=== PATIENT | male | born 1955 | race Caucasian/White ===

== ENCOUNTER → 2017-05-20 | Outpatient (CLI) | payer OTHER ==
--- NOTE | 2017-05-20 09:32 | KCIC ---
EXAM: Lumbar spine MRI without contrast. HISTORY: Chronic back pain. Left leg weakness. TECHNIQUE: Multiplanar, multisequence magnetic resonance imaging of the lumbar spine was performed without contrast. COMPARISON: 04/15/2016 FINDINGS: There is a transitional lumbosacral segment. For the purposes of this dictation and correspond with the numbering system utilized on the prior MRI report, the transitional segment will be considered a partially lumbarized S1 segment with rudimentary S1-S2 disc. Based on this numbering system, there is grade 1 anterolisthesis of L4 on L5, measuring 3 mm. There is minimal retrolisthesis of L5 on S1. There is lumbar levoscoliosis. There is degenerative endplate remodeling with disc space narrowing and osteophytosis primarily at and L5-S1. There are multiple endplate Schmorl's nodes. There are multiple hemangiomas. There is epidural lipomatosis. There are left renal parapelvic cysts. The conus terminates at L2. At T11-T12, there is a posterior central disc protrusion superimposed on a disc bulge and endplate remodeling. There is moderate facet arthropathy. The neural foramina are excluded from the [id number]. There is mild central canal stenosis. At T12-L1, there is a posterior central superior disc extrusion extending 17 mm superior to the disc space. There is also a left foraminal to extra foraminal disc protrusion with 3 mm superior extrusion superimposed on a disc bulge and endplate remodeling. There is mild bilateral facet arthropathy. There is moderate to severe right and severe left foraminal stenosis. There is mild central canal stenosis. At L1-L2, there are bilateral extraforaminal annular tears superimposed on a disc bulge and endplate remodeling. There is moderate facet arthropathy. There is hypertrophy of the ligamentum flavum. There is mild right and moderate left foraminal stenosis with abutment of the exiting L1 nerve roots. There is mild central canal stenosis. At L2-L3, there is a right paracentral disc protrusion with 5 and inferior extrusion superimposed on a disc bulge and endplate osteophytosis. There is mild right and moderate left facet arthropathy. There is hypertrophy of the ligamentum flavum. There is mild right and qsza-yw-[id number] left foraminal stenosis with abutment of the exiting left greater than right L2 nerve root. There is moderate to severe central canal stenosis. At L3-L4, there is a posterior central to right paracentral disc protrusion with 7 mm superior extrusion superimposed on a right lateral predominant disc bulge and endplate osteophytosis. There is moderate bilateral facet arthropathy. There is epidural lipomatosis. There is pvhc-hj-jmzyebkq bilateral foraminal stenosis with abutment of the exiting L3 nerve roots. There is severe central canal stenosis. At L4-L5, there is a right lateral predominant disc bulge and endplate osteophytosis. There is severe facet arthropathy. There is hypertrophy of the ligamentum flavum. There is moderate right foraminal stenosis with abutment of the exiting right L4 nerve root. There is moderate to severe central canal stenosis. At L5-S1, there is a diffuse disc bulge with endplate osteophytosis. There is severe facet arthropathy. There is severe bilateral foraminal stenosis with effacement of the exiting L5 nerve roots. There is severe central canal stenosis. IMPRESSION: 1. Multilevel degenerative changes of the lumbar spine, described in detail above. This results in significant foraminal and central canal stenosis at multiple levels. These findings are stable to slightly progressed at all levels compared to the prior study. 2. Lumbar scoliosis and grade 1 anterolisthesis of L4 and L5. 3. Transitional lumbosacral segment, considered S1 for this dictation. Electronically signed by: Stacy Cuevas MD (05/20/2017 9:28 AM) [facility]-KCIC1
== END | disposition home or self-care (01) ==
LOC: KCIC MRI 08:25
PROVIDERS: ATTEND Family Medicine
DX: M48.061 Spinal stenosis, lumbar region without neurogenic claudication (principal); M51.46 Schmorl's nodes, lumbar region; M51.26 Other intervertebral disc displacement, lumbar region; M47.896 Other spondylosis, lumbar region; R53.1 Weakness
CPT/HCPCS: 72148

== ENCOUNTER → 2017-07-22 | Outpatient (CLI) | payer OTHER ==
[2017-07-22 12:59] LABS: ADD MAN DIFF? NO
[2017-07-22 13:06] LABS: BASO % 1 % (0-3); EOS % 6 % (0-3); HEMOGLOBIN 13.7 g/dL (13.0-17.5); LYMPH # 0.5 x10^3/uL (1.0-4.8); LYMPH % 10 % (24-48); MEAN CORPUSCULAR HEMOGLOBIN 30 pg (25-35); MEAN CORPUSCULAR HGB CONC 33 g/dL (31-37); MEAN CORPUSCULAR VOLUME 91 fL (79-100); MONO % 10 % (0-9); NEUT % 75 % (31-73); PLATELET COUNT 266 x10^3/uL (140-400); RED BLOOD COUNT 4.63 x10^6/uL (4.30-5.70); RED CELL DISTRIBUTION WIDTH 13.2 % (11.5-14.5); WHITE BLOOD COUNT 5.4 x10^3/uL (4.0-11.0)
[2017-07-22 13:21] LABS: ALBUMIN 3.4 g/dL (3.4-5.0); ALBUMIN/GLOBULIN RATIO 0.9 (1.0-1.7); ALK PHOS 73 U/L (46-116); ALT (SGPT) 21 U/L (16-63); ANION GAP 9 (6-14); AST (SGOT) 13 U/L (15-37); BLOOD UREA NITROGEN 19 mg/dL (8-26); BUN/CREATININE RATIO 17 (6-20); CALCIUM 8.5 mg/dL (8.5-10.1); CARBON DIOXIDE 28 mmol/L (21-32); CHLORIDE 107 mmol/L (98-107); CREATININE 1.1 mg/dL (0.7-1.3); GFR 68.1; GLUCOSE 131 mg/dL (70-99); POTASSIUM 4.2 mmol/L (3.5-5.1); SODIUM 144 mmol/L (136-145); TOTAL BILIRUBIN 0.3 mg/dL (0.2-1.0)
[2017-07-22 21:17] LABS: MRSA BY PCR Negative (Negative)
== END | disposition home or self-care (01) ==
LOC: SURGPAT 09:54
DX: Z01.818 Encounter for other preprocedural examination (principal); M47.896 Other spondylosis, lumbar region
CPT/HCPCS: 36415; 80053; 85025; 87641

== ENCOUNTER 2017-07-23 08:08 | Day surgery (SDC) | payer OTHER ==
[~2017-07-23 08:08] MED LIST: BACITRACIN 50,000 UNIT in IV NORMAL SALINE 1000ML BAG 1,000 ML IRR ONE; BUPIVACAINE MPF 0.5% 30 ML VIAL. ONE; CELE100C PO; GELATIN SPONGE SIZE 100. ONE; IV RINGERS,LACTATED 1000ML 1,000 ML IV SCH; LIDOCAINE 1% PF 2 ML VIAL. ID PRN; LIDOCAINE 2%/EPI 1:100,000 20 ML VIAL. ONE; METF850T2 PO; ONDANSETRON PF 4 MG/2 ML VIAL. IV PRN; OXYC-328 PO; PHEN37.53 PO; PROCHLORPERAZINE 10 MG/2 ML VIAL. IV PRN; RANI300C PO; THROMBIN TOPICAL 20,000 UNIT SPRAY.SYRN KIT TP ONE; TIZA4TAB PO; fentaNYL PF VIAL 100 MCG/2 ML VIAL IV PRN
[2017-07-23] MEDS ORDERED: ONDANSETRON PF 4 MG/2 ML VIAL. ONE (08:36)
[2017-07-23] MEDS ORDERED: PROPOFOL 20 ML IV ONE (08:36)
[2017-07-23] MEDS ORDERED: LIDOCAINE 2% PF Vial for OR 5 ML VIAL. ONE (08:36)
[2017-07-23] MEDS ORDERED: ROCURONIUM 50 MG/5 ML VIAL. ONE (08:36)
[2017-07-23] MEDS ORDERED: DEXAMETHASONE SOD PHOS 20 MG/5 ML VIAL. ONE (08:36)
[2017-07-23] MEDS ORDERED: REMIFENTANIL 2 MG VIAL. IV ONE (08:36)
[2017-07-23] MEDS ORDERED: PROPOFOL 50 ML IV ONE ×2 (08:36→11:45)
[2017-07-23] MEDS ORDERED: PHENYLEPHRINE 10 MG/ML VIAL. ONE ×2 (08:36→11:45)
[2017-07-23] MEDS ORDERED: MINERAL OIL/PETROLATUM,WHITE OPHTH OINT 3.5GM TUBE. ONE (08:37)
[2017-07-23] MEDS ORDERED: DESFLURANE > 120 MINUTES IH ONE (11:45)
[2017-07-23] MEDS ORDERED: fentaNYL PF VIAL 100 MCG/2 ML VIAL ONE (12:03)
--- NOTE | 2017-07-23 12:12 | PDOC ---
BRIEF OPERATIVE NOTE Date: Jul 23, 2017 Pre-Op Diagnosis lumbar radiculopathy, lumbar spondylosis Post-Op Diagnosis same Procedure Performed left L5-S1 hemilaminotomy with foraminotomy and removal of disk fragment Surgeon Chang Prepper none Anesthesia Type: General Blood Loss 50mL Specimens Obtained disk/decompression Findings prominent stenosis left L5-S1 due to degenerative changes and disk, neuromonitoring remained at least baseline throughout the procedure Complications none apparent ZEHRA SHARPE MD Jul 23, 2017 12:12
--- NOTE | 2017-07-23 12:16 | DISCH ---
DISCHARGE INSTRUCTIONS Condition on Discharge Condition on Discharge: Stable Activity After Discharge Activity Instructions for Disc: Avoid exertion, Progressive ambulation, Other, see below (no strenuous activity, no lifting over 10lbs, no excess bending or twisting) Lifting Instructions after Dis: Do not lift >10 pounds Wound Incision Care Wound/Incision Care: Other, see below (may remove dressing day 3 after surgery ; keep incision clean and dry; do not soak, scrub, or submerge incision) Contacting the after DC Call your doctor for: Concerns you may have Follow-Up Follow up with: Dr. Sharpe/neurosurgery in two weeks [phone] ZEHRA SHARPE MD Jul 23, 2017 12:16
[2017-07-23] MEDS: HYDROmorphone 2 MG/ML VIAL IV PRN ×2 (12:33→12:48)
[2017-07-23] MEDS: fentaNYL PF VIAL 100 MCG/2 ML VIAL IV PRN ×2 (12:41→12:48)
[2017-07-23] MEDS ORDERED: OXYC-323 PO (12:54)
[2017-07-23] MEDS ORDERED: SENN-37 PO (12:54)
[2017-07-23] MEDS ORDERED: METH-38 PO (12:54)
[2017-07-23] MEDS: MORPHINE SULFATE 2 MG/ML DISP.SYRIN. IV PRN ×2 (12:59→13:10)
--- NOTE | 2017-07-23 13:13 | OP ---
DATE OF SURGERY: 07/23/2017 SURGEON: Rei Sharpe MD. FILTER PULP WASHER: None. PREOPERATIVE DIAGNOSES: Lumbar radiculopathy and lumbar spondylosis. POSTOPERATIVE DIAGNOSES: Lumbar radiculopathy and lumbar spondylosis. PROCEDURE: Left L5-S1 hemilaminotomy with foraminotomy and removal of disk fragment with intraoperative use of neuromonitoring. ANESTHESIA: General. COMPLICATIONS: None intraprocedurally. INDICATIONS FOR THE PROCEDURE: The patient is a 61-year-old gentleman with low back and left posterior leg pain with prominent stenosis on the left at L5-S1 secondary to disk as well as degenerative changes. He has been refractory to multiple nonsurgical treatments. Please refer to the patient's chart for additional detail. DESCRIPTION OF PROCEDURE: After informed consent was obtained, the patient was brought into the operating room. He was placed under general anesthesia. He was placed in prone position on the Alfred table. All pressure points were checked and padded appropriately. Neuromonitoring was instituted and baseline potentials were obtained. Lumbar region was prepped and draped in usual sterile fashion. Fluoroscopy was utilized to localize an appropriate incision location and a vertical incision centered over the region of lumbar 5 and sacral 1 with 10 blade scalpel. Monopolar electrocautery was utilized to dissect the avascular midline to the spinous processes of lumbar 5 and sacral 1 and leftward across the lamina at this location. Level was verified with fluoroscopy prior to the initiation of decompression. A hemilaminotomy was performed on the left at this region with a pneumatic drill as well as Kerrison rongeur. The underlying ligament was gently dissected free and a disk fragment was encountered. This was removed in a piecemeal fashion. The adjacent nerve root was identified and this was decompressed utilizing a Kerrison rongeur to perform a foraminotomy. Upon completion of these things, the region was noted to be very well decompressed and verified with direct visualization as well as gentle palpation with a nerve hook and a Desire. Neuromonitoring potentials remained at least baseline throughout the entire procedure. Pristine hemostasis was achieved with FloSeal, cottonoids and some use of bipolar electrocautery. The wound was generously irrigated with antibiotic irrigation prior to the final closure. The muscles and fascia were reapproximated with 0 Vicryl in simple interrupted fashion. Subcutaneous tissues were reapproximated with 2-0 Vicryl in interrupted inverted fashion. Skin was reapproximated with 4-0 Vicryl in a running subcuticular fashion. Mastisol and Steri-Strips were applied. The wound was dressed with Telfa and Tegaderm. At the end of procedure, all needle and sponge counts correct x 2. The patient was extubated in the operating room and taken to recovery in stable condition. There were no intraprocedural complications apparent. Neuromonitoring potentials remained at least baseline throughout the entire procedure. REI SHARPE MD DR: DAX/sandra JOB#: [id number] / [id number] ASYA
[2017-07-23] MEDS ORDERED: ZOLPIDEM 5 MG TABLET. PO PRN (13:45)
[2017-07-23] MEDS ORDERED: diphenhydrAMINE HCL 25 MG CAPSULE PO PRN (13:45)
[2017-07-23] MEDS ORDERED: MAG HYDROX/ALUMINUM HYD/SIMETH 30 ML ORAL.SUSP PO PRN (13:45)
[2017-07-23] MEDS ORDERED: CALCIUM CARBONATE 500 MG TAB.CHEW PO PRN (13:45)
[2017-07-23] MEDS ORDERED: oxyCODONE/APAP 5/325 1 TAB TABLET PO PRN ×2 (13:45)
[2017-07-23] MEDS ORDERED: 0.9 % SODIUM CHLORIDE 10 ML DISP.SYRIN. IV PRN (13:45)
[2017-07-23] MEDS ORDERED: diphenhydrAMINE 50 MG/ML VIAL IV PRN (13:45)
[2017-07-23] MEDS ORDERED: ONDANSETRON PF 4 MG/2 ML VIAL. IV PRN (13:45)
[2017-07-23] MEDS ORDERED: NON FORMULARY ITEM (Ranitidine Hcl 1 CAP) PO PRN (13:45)
[2017-07-23] MEDS ORDERED: NALOXONE 0.4 MG/ML VIAL. IV PRN (13:45)
[2017-07-23] MEDS ORDERED: ACETAMINOPHEN 325 MG TABLET. PO PRN (13:45)
[2017-07-23] MEDS ORDERED: fentaNYL PF VIAL 100 MCG/2 ML VIAL IV PRN ×2 (13:45)
[2017-07-23] MEDS ORDERED: MAGNESIUM HYDROXIDE 2,400 MG/30 ML ORAL.SUSP. PO PRN (13:45)
[2017-07-23] MEDS ORDERED: METHOCARBAMOL 750 MG TABLET PO SCH (14:00)
[2017-07-23 14:40] VITALS: BP 155/74
[2017-07-23] MEDS ORDERED: FAMOTIDINE 20 MG TABLET. PO PRN ×2 (14:45)
[2017-07-23] MEDS ORDERED: FERROUS SULFATE 325 MG TABLET. PO SCH (17:00)
[2017-07-23] MEDS ORDERED: CALCIUM CARB/VIT D3 500/200 TABLET. PO SCH (17:00)
[2017-07-23] MEDS ORDERED: SENNOSIDES/DOCUSATE 8.6/50MG TABLET. PO SCH (21:00)
[2017-07-23] MEDS ORDERED: DOCUSATE SODIUM 100 MG CAPSULE. PO SCH (21:00)
[2017-07-24] MEDS ORDERED: metFORMIN 850 MG TABLET PO SCH (08:00)
[2017-07-24] MEDS ORDERED: NON FORMULARY ITEM (Phentermine Hcl 1 CAP) PO SCH (08:00)
[2017-07-24] MEDS ORDERED: CELECOXIB 100 MG CAPSULE. PO SCH (09:00)
[2017-07-24] MEDS ORDERED: MULTIVITAMIN with MINERAL TABLET. PO SCH (09:00)
--- NOTE | 2017-07-24 16:26 | PATHOLOGY ---
PATHOLOGY REPORT * * * * * * * * FINAL DIAGNOSIS: Segments of fibrocartilaginous, fibroadipose, and skeletal muscle tissue, lumbar disc and decompression: - Degenerative changes of fibrocartilaginous tissue. COMMENT: There is no evidence of an acute inflammatory process or malignancy. (JPM:rlm; 07/24/2017) REPORT ELECTRONICALLY SIGNED BY: Rivera Juares M.D. DATE/TIME: 07/24/2017 16:22 * * * * * * * * GROSS PATHOLOGY: Received in formalin labeled "Susanna White, lumbar disc and decompression," are multiple segments of todd, pale yellow, and pale brown rubbery and gritty tissue measuring 3.7 x 2.4 x 1.5 cm in aggregate dimensions, containing possible small fragments of bone. The tissue is submitted representatively in cassette A1. (TSD; 07/23/2017) INITIAL CPT CODE(S): A; 88938 Professional services performed by [facility] [place] [address] Technical services performed by [facility] at [address] [place] [address], [facility] [address], [place] [address]. SPECIMEN(S) RECEIVED: A.Lumbar disc and decompression CLINICAL HISTORY: Left sided back pain PATIENT: SUSANNA WHITE /AGE: 512/18/1955 (Age: 61) PATIENT #: [id number] ALT CASE #: SPECIMEN COLLECTION DATE: 07/23/2017 SPECIMEN RECEIVED DATE: 07/23/2017 [facility] - [address] [place] [address] - PHONE: [phone] * * * END OF REPORT * * *
== END 2017-07-23 16:00 | disposition home or self-care (01) ==
LOC: SURG 08:08
PROVIDERS: ATTEND Neurological Surgery
DX: M47.26 Other spondylosis with radiculopathy, lumbar region (principal); I10 Essential (primary) hypertension; E66.9 Obesity, unspecified; E11.9 Type 2 diabetes mellitus without complications; Z98.890 Other specified postprocedural states; Z87.39 Personal history of other diseases of the musculoskeletal system and connective tissue; Z86.39 Personal history of other endocrine, nutritional and metabolic disease
CPT/HCPCS: 63047; 76000; 82962; 97162; 97530; G8978; G8979; G8980; J0690; J1100; J1170; J2270; J2405; J2704; J3010; J3490; J7030; J2001

== ENCOUNTER → 2018-04-29 | Outpatient (CLI) | payer OTHER ==
[~2018-04-29] MED LIST changes: -BACITRACIN 50,000 UNIT in IV NORMAL SALINE 1000ML BAG 1,000 ML IRR ONE; -BUPIVACAINE MPF 0.5% 30 ML VIAL. ONE; +CETI10TA22 PO; +GADOBUTROL 7.5 MMOL/7.5 ML VIAL IV ONE; -GELATIN SPONGE SIZE 100. ONE; -IV RINGERS,LACTATED 1000ML 1,000 ML IV SCH; -LIDOCAINE 1% PF 2 ML VIAL. ID PRN; -LIDOCAINE 2%/EPI 1:100,000 20 ML VIAL. ONE; -METF850T2 PO; +METF850T8 PO; +METH-38 PO; +NALT1TAB PO; -ONDANSETRON PF 4 MG/2 ML VIAL. IV PRN; +OXYC-323 PO; +PHEN37.598 PO; -PROCHLORPERAZINE 10 MG/2 ML VIAL. IV PRN; +SENN-37 PO; -THROMBIN TOPICAL 20,000 UNIT SPRAY.SYRN KIT TP ONE; -fentaNYL PF VIAL 100 MCG/2 ML VIAL IV PRN
--- NOTE | 2018-04-29 13:21 | KCIC ---
MRI Lumbar Spine without and with contrast History: Lumbar stenosis, neurogenic claudication, previous surgery Technique: Multiplanar, multi sequential pre and postcontrast MR imaging was performed of the lumbar spine. Contrast: 12 cc Gadavist Comparison: May 20, 2017 Findings: There again appears to be transitional anatomy, same numbering utilized as for the previous exam, most inferior fully formed intervertebral disc space considered L5-S1 and rudimentary intervertebral disc space S1-S2. There is again mild grade 1 anterior spondylolisthesis at what is considered L4-5, negligible anterior spondylolisthesis at L2-L3, L1-2, and T12-L1. Lumbar vertebral body stature is similar. There is again large hemangioma of L2 eccentric to left with involvement of the pedicle, other foci such as of the posterior left L1 vertebral body and left pedicle, large focus of L5, and also foci of the visualized sacrum. There is again advanced degenerative disc disease L5-S1, moderate to severe degenerative disc disease L2-3 and L3-4 and to lesser degree L4-5, minimally at L1-2. There has been progression of endplate edema at L3-4, mild amorphous L5-S1 endplate edema. There is no significant nodular enhancement of the conus or cauda equina, no enhancement in the intervertebral disc spaces. There is nonspecific edema of the posterior subcutaneous fat of the lower back. There is edema associated with the left L1-2 facet articulation with some extent to the pedicles most notable at L1. There is also edema of the left T12 pedicle, also some edema associated with the right facet articulation at L3-4 and also the left pedicles at L4 and L5. There is mild lumbar levoscoliosis. T12-L1: There is again more central extrusion extending above the intervertebral disc space measuring about 9 mm transverse by 6 to 7 mm AP by 17 mm CC. There is again mild indentation upon the ventral thecal sac more centrally with mild overall spinal stenosis. There is again facet degenerative change and buckling of the ligamentum flavum which contributes to severe left greater than right neural foramina compromise. L1-L2: There is again bilateral facet hypertrophic change and mild buckling of the ligamentum flavum. There is minimal posterior bulge/protrusion as seen previously. Spinal canal is overall adequate. Right neural foramen is adequate, [id number] narrowing of the left neural foramen unchanged. L2-L3: There is again moderate to severe facet degenerative change and mild to moderate buckling of the ligamentum flavum. There is again disc osteophyte complex and bulge/protrusion more eccentric to the right lateral recess. There is similar moderate narrowing of the right lateral recess and to lesser degree of the central canal. There is minimal narrowing of the neural foramina bilaterally, disc osteophyte complex again contacting the undersurface of the extraforaminal left L2 nerve root. L3-L4: There is again disc osteophyte complex, bilateral facet hypertrophic change, mild buckling of the ligamentum flavum, and prominence of posterior epidural fat. Combination of findings results in vpje-[id number]-gcoqcrma attenuation of the thecal sac in part from posteriorly by epidural lipomatosis. There is again mild bilateral neural foramina compromise, disc osteophyte complex again contacting undersurface of the proximal extraforaminal left L3 nerve root. L4-L5: There is again severe facet degenerative change change and mild buckling of the ligamentum flavum. There is again minimal disc osteophyte complex and bulge. Combination of findings again results in moderate narrowing of the far right lateral recess, to lesser degree of the left lateral recess and mild to moderate narrowing of the central canal. There is again moderate to severe narrowing of the right neural foramen with contact of the undersurface exiting right L4 nerve root by disc osteophyte complex, left neural foramen very minimally narrowed. L5-S1: There is again broad posterior disc osteophyte complex/osteophytes. There is again moderate bilateral facet hypertrophic change and minimal buckling of the ligamentum flavum. There is again contact of the descending S1 nerve roots in the lateral recesses bilaterally, moderate to severe left greater than right lateral recess stenosis. There is again overall mild narrowing of the central canal. There is again fairly severe neural foramina compromise bilaterally with contact exiting L5 nerve roots in part from disc osteophyte complex. Impression: 1. There is again transitional anatomy of the lumbar spine. There is grade 1 anterior spondylolisthesis at what is considered L4-5, to lesser degree at what is considered L2-3, L1-L2, T12-L1. There is multilevel lumbar facet degenerative change. 2. There is again multilevel lateral recess stenosis as described most notable right greater than left at L4-5, left greater than right L5-S1, on the right at L2-L3. There is also [id number] attenuation of the thecal sac at L3-4. There is also again mild spinal stenosis by extrusion at the T12 level. 3. There is multilevel lumbar neural foramina compromise, more significant narrowing bilaterally at L5-S1 and T12-L1 and on the right at L4-5, mild to moderate narrowing on the left at L1-L2. 4. There is multilevel moderate to severe degenerative disc disease, more advanced degenerative disc disease L5-S1 and to lesser degree at L2-3 and L3-4. There has been progression of L3-4 endplate edema likely reactive/degenerative in etiology. There is also variable edema associated with pedicles and facet articulations as stated more likely to be reactive/degenerative in etiology. Electronically signed by: Guido Dukes MD (04/29/2018 1:17 PM) [facility]-KCIC1
== END | disposition home or self-care (01) ==
LOC: KCIC MRI 10:35
PROVIDERS: ATTEND Family Medicine
DX: M48.061 Spinal stenosis, lumbar region without neurogenic claudication (principal); M51.36 Other intervertebral disc degeneration, lumbar region; M51.37 Other intervertebral disc degeneration, lumbosacral region; M43.16 Spondylolisthesis, lumbar region; M48.04 Spinal stenosis, thoracic region; M25.78 Osteophyte, vertebrae; R60.0 Localized edema
CPT/HCPCS: 72158; 82565; A9585